=== PATIENT | female | born 1975 | race Caucasian/White ===

== ENCOUNTER 2018-08-04 18:11 | Outpatient (REF) | payer OTHER, SELFPAY ==
[2018-08-04 18:47] LABS: ALT 27 U/L (12-78); AST 21 U/L (15-37); Albumin 3.9 g/dL (3.4-5.0); Alkaline Phosphatase 48 U/L (46-116); Anion Gap 9.6 mmol/L (3-11); BUN 14 mg/dL (7-18); Bilirubin, Total 0.3 mg/dL (0.2-1.0); CO2 26.4 mmol/L (21.0-32.0); CREATININE 0.68 mg/dL (0.55-1.02); Calcium 9.4 mg/dL (8.5-10.1); Chloride 102 mmol/L (98-107); Glucose 94 mg/dL (70-100); Potassium 4.4 mmol/L (3.5-5.1); Sodium 138 mmol/L (136-145); Total Protein 7.3 g/dL (6.4-8.2)
[2018-08-04 18:58] LABS: HCT 43.8 % (36.0-46.0); HGB 14.7 g/dL (12.0-15.5); Mean Corp. HGB Concentration 33.6 g/dL (32.0-36.0); Mean Corpuscular Hemoglobin 31.3 pg (27.0-33.0); Mean Corpuscular Volume 93.2 fL (80-95); Platelet Count 279 x1000/uL (130-400); RBC Distribution Width 13.3 % (11.7-14.6); White Blood Cell Count 6.31 k/cumm (4.4-10.8)
== END 2018-08-04 18:31 ==
LOC: LBN 18:11
PROVIDERS: PCP Internal Medicine; Visit Provider Internal Medicine
DX: K51.00 Ulcerative (chronic) pancolitis without complications (principal)
CPT/HCPCS: 80053; 85027

== ENCOUNTER 2019-03-23 16:04 | Outpatient (REF) | payer OTHER, SELFPAY ==
--- NOTE | 2019-03-23 16:00 | PAPFT_PTH ---
PATIENT: Amy Justice LOC: [facility] U#:[id number] AGE/SX: 44/F ROOM: RE03/23/[address]: Valerie Hendricks MD : [id number] BED: DIS: 03/23/2019 SPEC #: [id number] RECD: 03/24/19 13:11 STATUS: KEKE REMiriam #: [id number] MANJIT: 03/23/19 16:[address]: Valerie Hendricks DEPT: [facility] Cytology RECD BY: Shelby Laureano Tissues: 1 - CX/ENDOCX FOR PAP SMEARS Procedures: PAP THIN PREP/[facility] Screening HPV DNA PROBE Comments: [id number]
== END 2019-03-23 16:24 ==
LOC: LBN 16:04
PROVIDERS: PCP Internal Medicine; Visit Provider Internal Medicine
DX: Z12.4 Encounter for screening for malignant neoplasm of cervix (principal); Z11.51 Encounter for screening for human papillomavirus (HPV)
CPT/HCPCS: 88142; 87624

== ENCOUNTER 2019-12-08 13:31 | Outpatient (CLI) | payer OTHER, SELFPAY ==
[2019-12-08 13:06] LABS: HCT 40.8 % (36.0-46.0); HGB 13.7 g/dL (12.0-15.5); Mean Corp. HGB Concentration 33.6 g/dL (32.0-36.0); Mean Corpuscular Hemoglobin 31.1 pg (27.0-33.0); Mean Corpuscular Volume 92.7 fL (80-95); Mean Platelet Volume 9.2 fL (8.0-11.0); Platelet Count 289 x1000/uL (130-400); RBC Distribution Width 12.9 % (11.7-14.6); White Blood Cell Count 6.47 k/cumm (4.4-10.8)
[2019-12-08 14:24] LABS: ALT 18 U/L (14-59); AST 16 U/L (15-37); Albumin 3.9 g/dL (3.4-5.0); Alkaline Phosphatase 34 U/L (46-116); Anion Gap 9.7 mmol/L (3-11); BUN 12 mg/dL (7-18); Bilirubin, Total 0.5 mg/dL (0.2-1.0); CO2 25.3 mmol/L (21.0-32.0); CREATININE 0.83 mg/dL (0.55-1.02); Calcium 8.6 mg/dL (8.5-10.1); Chloride 103 mmol/L (98-107); Glucose 88 mg/dL (74-106); Potassium 4.1 mmol/L (3.5-5.1); Sodium 138 mmol/L (136-145); Total Protein 6.9 g/dL (6.4-8.2)
== END 2019-12-08 13:51 ==
PROVIDERS: PCP Internal Medicine; Visit Provider Internal Medicine
DX: K51.00 Ulcerative (chronic) pancolitis without complications (principal)
CPT/HCPCS: 36415; 80053; 85027

== ENCOUNTER 2020-02-11 10:27 | Outpatient (REF) | payer OTHER, SELFPAY ==
[2020-02-14 21:14] LABS: Calprotectin 289 mcg/g
== END 2020-02-11 10:47 ==
LOC: LBN 10:27
PROVIDERS: PCP Internal Medicine; Visit Provider Internal Medicine Gastroenterology
DX: K51.911 Ulcerative colitis, unspecified with rectal bleeding (principal); R19.7 Diarrhea, unspecified
CPT/HCPCS: 83993; 87324

== ENCOUNTER 2020-06-22 10:49 | Outpatient (CLI) | payer OTHER, SELFPAY ==
--- NOTE | 2020-07-14 08:47 | ZIOP_ITS ---
Date of service: 07/14/20 Time of Service: 08:47 14 Day [employer] Referring Provider:: jamil Indications:: tachycardia Note: This is a 2-week recorder ordered for indication of tachycardia. ?The patient was in normal sinus rhythm for the majority of the recording with an average heart rate of 79 bpm (52-182 bpm) ?There were 5 episodes of supraventricular tachycardia with the longest lasting 13 beats. ?There were rare isolated premature ventricular contractions and no evidence of ventricular tachycardia. ?There was no episodes of atrial fibrillation, no pauses greater than 3 seconds and no evidence of high degree heart block.
== END 2020-06-22 11:09 ==
PROVIDERS: PCP Internal Medicine; Visit Provider Internal Medicine
DX: R00.0 Tachycardia, unspecified (principal)
CPT/HCPCS: 0296T

== ENCOUNTER 2020-07-24 08:48 | Outpatient (REF) | payer OTHER, SELFPAY ==
[2020-07-26 19:34] LABS: Calprotectin <15.6 mcg/g
== END 2020-07-24 09:08 ==
LOC: LBN 08:48
PROVIDERS: PCP Internal Medicine; Visit Provider Internal Medicine Gastroenterology
DX: K51.911 Ulcerative colitis, unspecified with rectal bleeding (principal)
CPT/HCPCS: 83993

== ENCOUNTER 2020-10-20 04:06 | Outpatient (CLI) | payer OTHER, SELFPAY ==
[2020-10-20 16:43] LABS: Abs Immature Grans 0.02 10^3/uL (0.0-0.06); Absolute Basophil Count 0.04 10^3/uL (0.0-0.2); Absolute Eosinophil Count 0.09 10^3/uL (0.0-0.7); Absolute Lymphocyte Count 2.27 10^3/uL (1.2-3.4); Absolute Monocyte Count 0.41 10^3/uL (0.1-0.8); Absolute Neutrophil Count 3.32 10^3/uL (1.2-6.7); Basophils % 0.7; Eosinophils % 1.5; HCT 39.6 % (36.0-46.0); HGB 13.4 g/dL (11.2-15.7); Immature Grans % 0.3; Lymphocytes % 36.9; MCH 31.3 pg (27.0-33.0); MCHC 33.8 % (32.0-36.0); MCV 92.5 fL (80-95); MPV 9.2 fL (8.0-11.0); Monocytes % 6.7; Neutrophils % 53.9; Nucleated RBC 0 %; Platelet Count 286 10^3/uL (130-400); RBC 4.28 10^6/uL (3.93-5.22); RDW 12.9 % (11.7-14.6); RDW-SD 43.9 fL; WBC 6.15 10^3/uL (4.4-10.8)
[2020-10-20 17:11] LABS: ALT 24 U/L (14-59); AST 15 U/L (15-37); Albumin 3.7 g/dL (3.4-5.0); Alkaline Phosphatase 42 U/L (46-116); Anion Gap 4.6 mmol/L (3-11); BUN 12 mg/dL (7-18); Bilirubin, Total 0.3 mg/dL (0.2-1.0); CO2 29.4 mmol/L (21.0-32.0); CREATININE 0.96 mg/dL (0.55-1.02); Calcium 8.6 mg/dL (8.5-10.1); Chloride 105 mmol/L (98-107); Glucose 89 mg/dL (74-106); Magnesium 2.2 mg/dL (1.8-2.4); Potassium 4.1 mmol/L (3.5-5.1); Sodium 139 mmol/L (136-145); TSH 1.09 uIU/mL (0.36-3.74); Total Protein 6.9 g/dL (6.4-8.2)
== END 2020-10-20 04:26 ==
PROVIDERS: PCP Internal Medicine; Visit Provider Internal Medicine
DX: R00.0 Tachycardia, unspecified (principal); K51.011 Ulcerative (chronic) pancolitis with rectal bleeding
CPT/HCPCS: 36415; 80053; 83735; 84443; 85025

== ENCOUNTER 2022-04-30 03:56 | Outpatient (CLI) | payer OTHER, SELFPAY ==
[2022-04-30 08:55] LABS: HCT 41.5 % (36.0-46.0); HGB 13.8 g/dL (11.2-15.7); MCH 31.5 pg (27.0-33.0); MCHC 33.3 % (32.0-36.0); MCV 95 fL (80-95); MPV 9.4 fL (8.0-11.0); Platelet Count 267 10^3/uL (130-400); RBC 4.38 10^6/uL (3.93-5.22); RDW 12.7 % (11.7-14.6); WBC 5.66 10^3/uL (4.4-10.8)
[2022-04-30 10:26] LABS: ALT 19 U/L (14-59); AST 13 U/L (15-37); Albumin 3.6 g/dL (3.4-5.0); Alkaline Phosphatase 32 U/L (46-116); Anion Gap 8.5 mmol/L (3-11); BUN 22 mg/dL (7-18); Bilirubin, Total 0.3 mg/dL (0.2-1.0); CO2 25.5 mmol/L (21.0-32.0); CREATININE 0.8 mg/dL (0.55-1.02); Calcium 8.7 mg/dL (8.5-10.1); Calculated LDL 86 mg/dL (<100); Chloride 107 mmol/L (98-107); Cholesterol 179 mg/dL (<200); Glucose 109 mg/dL (74-106); HDL Cholesterol 79 mg/dL (40-60); Potassium 4.9 mmol/L (3.5-5.1); Sodium 141 mmol/L (136-145); Total Protein 6.8 g/dL (6.4-8.2); Triglyceride 70 mg/dL (<150)
== END 2022-04-30 03:57 | disposition home or self-care (01) ==
LOC: LBO 03:56
PROVIDERS: PCP Internal Medicine; Visit Provider Internal Medicine
DX: K51.011 Ulcerative (chronic) pancolitis with rectal bleeding (principal); Z13.1 Encounter for screening for diabetes mellitus; Z13.220 Encounter for screening for lipoid disorders
CPT/HCPCS: 36415; 80053; 80061; 85027

== ENCOUNTER 2022-12-31 16:21 | Outpatient (REF) | payer OTHER, SELFPAY ==
[2022-12-31 18:58] LABS: Bacteria Negative HPF (Negative); C & S Indicated? No; Casts Negative LPF (Negative); Crystals Negative HPF (Negative); Epithelial Cells Few HPF (Negative); Mucus Negative (Negative); Other Cells Negative (Negative); RBC 0-2 HPF (0-2); WBC 0-2 HPF (0-5)
== END 2022-12-31 16:22 | disposition home or self-care (01) ==
LOC: LBN 16:21
PROVIDERS: PCP Student in an Organized Health Care Education/Training Program; Visit Provider Student in an Organized Health Care Education/Training Program
DX: N28.9 Disorder of kidney and ureter, unspecified (principal); R03.0 Elevated blood-pressure reading, without diagnosis of hypertension
CPT/HCPCS: 81015

== ENCOUNTER 2023-04-21 04:13 | Outpatient (CLI) | payer OTHER, SELFPAY ==
[2023-04-21 15:18] LABS: Anion Gap 5.7 mmol/L (3-11); BUN 15 mg/dL (7-18); CO2 29.3 mmol/L (21.0-32.0); CREATININE 0.9 mg/dL (0.55-1.02); Calcium 8.8 mg/dL (8.5-10.1); Chloride 106 mmol/L (98-107); Estimated GFR 77.88 (mL/min/1.73m2); Glucose 105 mg/dL (74-106); Potassium 3.8 mmol/L (3.5-5.1); Sodium 141 mmol/L (136-145); TSH (W/Ref FT4) 0.93 uIU/mL (0.36-3.74)
[2023-04-21 16:44] LABS: Vitamin D 25 Total 19.2 ng/mL (30-100)
== END 2023-04-21 04:14 | disposition home or self-care (01) ==
PROVIDERS: PCP Student in an Organized Health Care Education/Training Program; Visit Provider Student in an Organized Health Care Education/Training Program
DX: I47.1 Supraventricular tachycardia (principal); K51.00 Ulcerative (chronic) pancolitis without complications; R03.0 Elevated blood-pressure reading, without diagnosis of hypertension; R63.4 Abnormal weight loss; Z91.89 Other specified personal risk factors, not elsewhere classified
CPT/HCPCS: 36415; 80048; 82306; 84443

== ENCOUNTER 2023-06-13 02:15 | Outpatient (CLI) | payer OTHER, SELFPAY ==
[2023-06-13 16:11] LABS: Abs Immature Grans 0.02 10^3/uL (0.0-0.06); Absolute Basophil Count 0.04 10^3/uL (0.0-0.2); Absolute Eosinophil Count 0.25 10^3/uL (0.0-0.7); Absolute Lymphocyte Count 2.63 10^3/uL (1.2-3.4); Absolute Monocyte Count 0.37 10^3/uL (0.1-0.8); Basophils % 0.5; Eosinophils % 3.2; HCT 39.6 % (36.0-46.0); HGB 13.4 g/dL (11.2-15.7); Immature Grans % 0.3; Lymphocytes % 34.1; MCH 31.5 pg (27.0-33.0); MCHC 33.8 % (32.0-36.0); MCV 93 fL (80-95); Monocytes % 4.8; Neutrophils % 57.1; Platelet Count 246 10^3/uL (130-400); RBC 4.26 10^6/uL (3.93-5.22); RDW 12.6 % (11.7-14.6); RDW-SD 43.2 fL; WBC 7.71 10^3/uL (4.4-10.8)
[2023-06-13 17:55] LABS: ALT 23 U/L (14-59); AST 19 U/L (15-37); Albumin 3.7 g/dL (3.4-5.0); Alkaline Phosphatase 41 U/L (46-116); Anion Gap 10.3 mmol/L (3-11); BUN 18 mg/dL (7-18); Bilirubin, Total 0.3 mg/dL (0.2-1.0); C-Reactive Protein 0.17 mg/dL (0.0-0.3); CO2 24.7 mmol/L (21.0-32.0); CREATININE 0.9 mg/dL (0.55-1.02); Calcium 8.9 mg/dL (8.5-10.1); Chloride 104 mmol/L (98-107); Estimated GFR 77.88 (mL/min/1.73m2); Glucose 108 mg/dL (74-106); Potassium 3.7 mmol/L (3.5-5.1); Sodium 139 mmol/L (136-145); Total Protein 7.3 g/dL (6.4-8.2)
== END 2023-06-13 02:16 | disposition home or self-care (01) ==
PROVIDERS: PCP Student in an Organized Health Care Education/Training Program; Visit Provider Internal Medicine Gastroenterology
DX: K51.911 Ulcerative colitis, unspecified with rectal bleeding (principal); R19.7 Diarrhea, unspecified
CPT/HCPCS: 36415; 80053; 85025; 86140

== ENCOUNTER 2023-06-13 16:28 | Outpatient (REF) | payer OTHER, SELFPAY ==
[2023-06-13 18:30] LABS: C Diff PCR Negative (Negative)
[2023-06-15 10:40] LABS: Campylobacter PCR Negative (Negative); Salmonella PCR Negative (Negative); Shiga Toxin PCR Negative (Negative); Shigella/Enteroinvasive Ecoli Negative (Negative)
[2023-06-17 14:19] LABS: Calprotectin 678 mcg/g
== END 2023-06-13 16:29 | disposition home or self-care (01) ==
LOC: LBN 16:28
PROVIDERS: PCP Student in an Organized Health Care Education/Training Program; Visit Provider Internal Medicine Gastroenterology
DX: K51.911 Ulcerative colitis, unspecified with rectal bleeding (principal); R19.7 Diarrhea, unspecified
CPT/HCPCS: 87493; 87505; 83993

== ENCOUNTER 2024-02-05 14:40 | Outpatient (REF) | payer OTHER, SELFPAY ==
[2024-02-09 14:49] LABS: Calprotectin <50.0 mcg/g
== END 2024-02-05 14:41 | disposition home or self-care (01) ==
LOC: LBN 14:40
PROVIDERS: PCP Student in an Organized Health Care Education/Training Program; Visit Provider Nurse Practitioner Adult Health
DX: K51.911 Ulcerative colitis, unspecified with rectal bleeding (principal)
CPT/HCPCS: 83993

== ENCOUNTER 2024-12-03 00:48 | Outpatient (CLI) | payer OTHER, SELFPAY ==
[2024-12-03 14:05] LABS: TSH (W/Ref FT4) 1.15 uIU/mL (0.36-3.74); Vitamin D 25 Total 28.5 ng/mL (30-100)
[2024-12-05 23:39] LABS: Anaplasma phagocytophilum Negative (Negative); B. miyamotoi PCR Negative (Negative); Babesia divergens/MO-1 Negative (Negative); Babesia duncani Negative (Negative); Babesia microti Negative (Negative); Ehrlichia chaffeensis Negative (Negative); Ehrlichia ewingii/canis Negative (Negative); Ehrlichia muris eauclairensis Negative (Negative)
[2024-12-06 10:06] LABS: Lyme Ab w Rflx to Lyme Confirm Negative (Negative)
== END 2024-12-03 00:49 | disposition home or self-care (01) ==
PROVIDERS: PCP Nurse Practitioner Family; Visit Provider Nurse Practitioner Family
DX: R23.2 Flushing (principal); E55.9 Vitamin D deficiency, unspecified
CPT/HCPCS: 36415; 82306; 87798; 84443; 86618

== ENCOUNTER 2025-06-07 09:54 | Outpatient (CLI) | payer OTHER, SELFPAY ==
[2025-06-07 16:13] LABS: Abs Immature Grans 0.02 10^3/uL (0.0-0.06); HCT 41.5 % (36.0-46.0); HGB 14.2 g/dL (11.2-15.7); Immature Grans % 0.3 %; MCH 31.4 pg (27.0-33.0); MCHC 34.2 % (32.0-36.0); MCV 92 fL (80-95); MPV 8.9 fL (8.0-11.0); Platelet Count 260 10^3/uL (130-400); RBC 4.52 10^6/uL (3.93-5.22); RDW 12.4 % (11.7-14.6); RDW-SD 41.5 fL; WBC 7.31 10^3/uL (4.4-10.8)
[2025-06-07 17:15] LABS: C-Reactive Protein < 0.50 mg/dL (<or=0.5)
== END 2025-06-07 09:55 | disposition home or self-care (01) ==
LOC: LBO 09:54
PROVIDERS: PCP Nurse Practitioner Family; Visit Provider Internal Medicine Gastroenterology
DX: R19.7 Diarrhea, unspecified (principal); K51.911 Ulcerative colitis, unspecified with rectal bleeding
CPT/HCPCS: 36415; 85025; 86140

== ENCOUNTER 2025-06-07 16:04 | Outpatient (REF) | payer OTHER, SELFPAY ==
[2025-06-08 11:01] LABS: Campylobacter PCR Negative (Negative); Shiga Toxin PCR Negative (Negative); Shigella/Enteroinvasive Ecoli Negative (Negative)
== END 2025-06-07 16:05 | disposition home or self-care (01) ==
LOC: LBN 16:04
PROVIDERS: PCP Nurse Practitioner Family; Visit Provider Internal Medicine Gastroenterology
DX: R19.7 Diarrhea, unspecified (principal); K51.911 Ulcerative colitis, unspecified with rectal bleeding
CPT/HCPCS: 87505; 83993

== ENCOUNTER 2025-06-30 03:54 | Outpatient (CLI) | payer OTHER, SELFPAY ==
--- NOTE | 2025-06-30 06:15 | DI.DEXA_ITS ---
Exam(s) XR DEXA BONE DENSITY W/WO CORNELIO EXAM: XR DEXA BONE DENSITY W/WO CORNELIO CLINICAL HISTORY: ? osteoporosis,at risk for osteoporosis,z91.89 TECHNIQUE: [employer] C densitometer analysis of left hip, lumbar spine and left forearm. Lateral survey image of the thoracic and lumbar spine. COMPARISON: No exams were available for comparison FINDINGS: Lateral view of the thoracic and lumbar spine shows no evidence of compression fractures. Bone mineral density measurements of the lumbar spine correspond to a total T- score of 0.5, in the normal range Bone mineral density measurements of the left hip correspond to a total T-score of 0.7. The femoral neck T-score is -1.1, in the mildly osteopenic range. Theleft forearm bone mineral density measurements correspond to a T-score of the distal 3rd of -0.4, in the normal range. IMPRESSION: Mild osteopenia of the femoral neck. Normal bone mineral density of the spine and forearm.
== END 2025-06-30 04:14 ==
LOC: DI 03:54
PROVIDERS: PCP Nurse Practitioner Family; Visit Provider Nurse Practitioner Family
DX: M85.88 Other specified disorders of bone density and structure, other site (principal)
CPT/HCPCS: 77080